=== PATIENT | male | born 1975 | race American Indian/Alaskan Native ===

== ENCOUNTER 2018-03-22 23:25 | Inpatient (IN) | payer MEDICARE ==
--- NOTE | 2018-03-23 00:42 | XRay Report ---
FINAL REPORT EXAM: XR CHEST 1V AP HISTORY: Shortness of breath COMPARISON: None available. FINDINGS: Frontal view(s) of the chest obtained. Cardiac silhouette grossly within normal limits. Marked hypoventilation of the lungs. Patchy airspace consolidations at the lung bases which may reflect combination of atelectasis and pneumonia. Large focal lucency to suggest pneumothorax. There is a lucency projecting over the lateral margin right lung field concerning for small right-sided pneumothorax. This is approximately 15 percent lung volume. No shifting of mediastinal structures. Marked elevation right hemidiaphragm. Possible small right-sided pleural effusion. IMPRESSION: Small right-sided pneumothorax. Nonspecific patchy airspace consolidations at the lung bases concerning for combination of atelectasis and pneumonia.
[2018-03-23 00:52] LABS: Hematocrit 35.9 % (35.5-45.6); Hemoglobin 10.6 gm/dl (11.8-15.2); Mean Corpuscular HGB Conc 30 % (32-34); Mean Corpuscular Hemoglobin 25 pg (28-32); Mean Corpuscular Volume 84 fl (84-94); Platelet Count 130 K/mm3 (140-440); Red Blood Count 4.29 M/mm3 (3.65-5.03); Red Cell Distribution Width 16.5 % (13.2-15.2)
[2018-03-23 01:11] LABS: BUN/Creatinine Ratio 85; Blood Urea Nitrogen 17 mg/dL (9-20); Calcium 6.9 mg/dL (8.4-10.2); Hemolysis Index 23
[2018-03-23] MEDS ORDERED: NACL 0.9% 1000 ML IV ONE (02:38)
--- NOTE | 2018-03-23 02:42 | Emergency Department Report ---
ED General Adult HPI - General Chief complaint: Dyspnea/Respdistress Stated complaint: LUCIUS Time Seen by Provider: 03/23/18 01:49 Source: family Mode of arrival: Wheelchair Limitations: Language Barrier, Physical Limitation, Other - History of Present Illness Initial comments: This is a 42-year-old male, cerebral palsy, developmental delay, DVT, currently off systemic anticoagulation, brought to the hospital by family for cough, weakness, shortness of breath. Patient nonverbal, cannot describe exacerbating or relieving factors. In the emergency room, was found to have hypoxemic respiratory failure, multilobar pneumonia, sepsis, the right-sided pneumothorax. The patient's symptoms initially improved with supportive care, oxygenation, and plan was to admit for IV fluids, antibiotics. In the emergency room, the care was discussed with critical care pulmonology on- call, Dr. Ambriz; she agreed with placement in the intensive care unit. Initial plan was to have patient on supplemental oxygen, with interventional radiology to perform a chest tube or Heimlich valve procedure during normal business hours. While in the emergency room. The patient decompensated, became hypoxic, hypotensive. Emergency right-sided Heimlich valve tube was placed using landmark technique, 400 mL of serous fluid were returned, saturation improved, blood pressure improved, and patient was subsequently intubated. -: Gradual Consistency: constant Improves with: none Worsens with: none Associated Symptoms: confusion, shortness of breath, weakness - Related Data Home Medications Medication Instructions Recorded Confirmed Last Taken carBAMazepine [TEGretol] 100 mg PO Q12H 04/06/16 04/06/16 Unknown Previous Rx's Medication Instructions Recorded Last Taken Type Clindamycin [Clindamycin CAP] 150 mg PO BID #8 capsule 04/17/16 Unknown Rx Enoxaparin [Lovenox] 30 mg SUB-Q Q12H #10 syringe 04/17/16 Unknown Rx Warfarin [Coumadin] 7.5 mg PO DAILY@1700 #30 tablet 04/17/16 Unknown Rx Pantoprazole [Protonix TAB] 20 mg PO DAILY #30 tablet. 04/23/16 Unknown Rx Allergies Allergy/AdvReac Type Severity Reaction Status Date / Time lactase [From Dairy Aid] AdvReac Nausea Verified 04/06/16 14:33 ED Review of Systems ROS: Stated complaint: LUCIUS Other details as noted in HPI Comment: Unobtainable due to pts medical conditions ED Past Medical Hx - Past Medical History Previous Medical History?: Yes Hx Congestive Heart Failure: No Hx Diabetes: No Hx Seizures: Yes Hx Asthma: No Hx COPD: No Hx HIV: No Additional medical history: Cerebral Palsy, Scoliosis. 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 - Surgical History Past Surgical History?: Yes Additional Surgical History: left hip - Social History Smoking Status: Never Smoker Substance Use Type: None - Medications Home Medications: Home Medications Medication Instructions Recorded Confirmed Last Taken Type carBAMazepine [TEGretol] 100 mg PO Q12H 04/06/16 04/06/16 Unknown History Clindamycin [Clindamycin CAP] 150 mg PO BID #8 capsule 04/17/16 Unknown Rx Enoxaparin [Lovenox] 30 mg SUB-Q Q12H #10 syringe 04/17/16 Unknown Rx Warfarin [Coumadin] 7.5 mg PO DAILY@1700 #30 tablet 04/17/16 Unknown Rx Pantoprazole [Protonix TAB] 20 mg PO DAILY #30 tablet. 04/23/16 Unknown Rx ED Physical Exam - General Limitations: Language Barrier, Physical Limitation, Other General appearance: lethargic - Eye Eye exam: Present: PERRL - ENT ENT exam: Present: normal orophraynx - Neck Neck exam: Present: normal inspection - Respiratory Respiratory exam: Present: decreased breath sounds - Cardiovascular Cardiovascular Exam: Present: regular rate, normal rhythm, irregular rhythm, normal heart sounds - GI/Abdominal GI/Abdominal exam: Present: soft, normal bowel sounds. Absent: distended, tenderness, guarding, rebound, rigid - Rectal Rectal exam: Present: other (sacral ulcer is noted) - Extremities Exam Extremities exam: Present: normal inspection. Absent: tenderness - Back Exam Back exam: Absent: tenderness - Neurological Exam Neurological exam: Present: altered - Psychiatric Psychiatric exam: Present: other (the patient is nonverbal) ED Course Vital Signs 03/22/18 03/22/18 03/23/18 23:27 23:47 02:55 Temperature 97.4 F L 97.4 F L Pulse Rate 130 H 82 Respiratory 12 20 Rate Blood Pressure 99/71 99/71 O2 Sat by Pulse 94 96 87 Oximetry 03/23/18 03/23/18 03/23/18 03:01 03:15 03:52 Temperature Pulse Rate 111 H Respiratory 29 H Rate Blood Pressure O2 Sat by Pulse 73 L 98 74 L Oximetry 03/23/18 03/23/18 03/23/18 04:00 04:15 04:30 Temperature Pulse Rate 109 H 102 H 99 H Respiratory 34 H 30 H 27 H Rate Blood Pressure 93/65 93/65 92/58 O2 Sat by Pulse 85 85 87 Oximetry 03/23/18 03/23/18 03/23/18 04:45 05:00 05:15 Temperature Pulse Rate 112 H 118 H 120 H Respiratory 30 H 26 H 30 H Rate Blood Pressure 92/58 90/61 95/60 O2 Sat by Pulse 83 L 79 L Oximetry 03/23/18 03/23/18 03/23/18 05:31 05:45 06:01 Temperature Pulse Rate 117 H 110 H 110 H Respiratory 35 H 25 H 14 Rate Blood Pressure 95/60 95/60 62/37 O2 Sat by Pulse 68 L 100 Oximetry 03/23/18 03/23/18 06:15 06:30 Temperature Pulse Rate 108 H 111 H Respiratory 22 24 Rate Blood Pressure 88/63 99/64 O2 Sat by Pulse 98 98 Oximetry - Chest Tube Chest Tube Location: seventh interspace Size of Vietnamese Tube (cm): 8 Chest Tube Procedure: betadine prep, sterile drapes applied, sterile dressing applied Anesthesia: 1% Lidocaine Mack of Air [place]: No Number of Attempts: 1 Tube Drainage: see nurses notes Tube Sutured to Skin: No Post Procedure CXR?: Yes - Intubation Time Out Performed: Yes Sedative: Ketamine Mg Given: 50 Paralytic: Rocuronium Mg Given: 50 Laryngoscope: Suresh Size: 3 Assist Device Used: Bougie ET Tube Size: 7.5 Tube Secured Depth (cm): 24 Tube Secured Location: teeth Tube Placement Confirmation: equal breath sounds bilat, no breath sounds over epi, confirmation by capnometr Patient Tolerated Procedure: well Intubation Complications: none Additional Comments: After placement of a right-sided Heimlich valve, visual laryngoscopy is performed, blue sheet catheter introduced into the trachea, and a 7-0 tracheal tube was placed without difficulty. ED Medical Decision Making - Lab Data Result diagrams: 03/23/18 00:22 03/23/18 00:22 Vital Signs 03/22/18 03/22/18 03/23/18 23:27 23:47 02:55 Temperature 97.4 F L 97.4 F L Pulse Rate 130 H 82 Respiratory 12 20 Rate Blood Pressure 99/71 99/71 O2 Sat by Pulse 94 96 87 Oximetry 03/23/18 03/23/18 03/23/18 03:01 03:15 03:52 Temperature Pulse Rate 111 H Respiratory 29 H Rate Blood Pressure O2 Sat by Pulse 73 L 98 74 L Oximetry 03/23/18 03/23/18 03/23/18 04:00 04:15 04:30 Temperature Pulse Rate 109 H 102 H 99 H Respiratory 34 H 30 H 27 H Rate Blood Pressure 93/65 93/65 92/58 O2 Sat by Pulse 85 85 87 Oximetry 03/23/18 03/23/18 03/23/18 04:45 05:00 05:15 Temperature Pulse Rate 112 H 118 H 120 H Respiratory 30 H 26 H 30 H Rate Blood Pressure 92/58 90/61 95/60 O2 Sat by Pulse 83 L 79 L Oximetry 03/23/18 03/23/18 03/23/18 05:31 05:45 06:01 Temperature Pulse Rate 117 H 110 H 110 H Respiratory 35 H 25 H 14 Rate Blood Pressure 95/60 95/60 62/37 O2 Sat by Pulse 68 L 100 Oximetry 03/23/18 03/23/18 06:15 06:30 Temperature Pulse Rate 108 H 111 H Respiratory 22 24 Rate Blood Pressure 88/63 99/64 O2 Sat by Pulse 98 98 Oximetry Lab Results 03/23/18 03/23/18 03/23/18 Range/Units 00:22 00:22 03:18 WBC 18.7 H (4.5-11.0) K/mm3 RBC 4.29 (3.65-5.03) M/mm3 Hgb 10.6 L (11.8-15.2) gm/dl Hct 35.9 (35.5-45.6) % MCV 84 (84-94) fl MCH 25 L (28-32) pg MCHC 30 L (32-34) % RDW 16.5 H (13.2-15.2) % Plt Count 130 L (140-440) K/mm3 Lymph % (Auto) Car Repair Supervisor [place] % (Auto) Car Repair Supervisor Eos % (Auto) Car Repair Supervisor Baso % (Auto) Car Repair Supervisor Lymph # Car Repair Supervisor [place] # Car Repair Supervisor Eos # Car Repair Supervisor Baso # Car Repair Supervisor Add Manual Diff Complete Total Counted 100 Seg Neutrophils % Car Repair Supervisor Seg Neuts % (Manual) 95.0 H (40.0-70.0) % Band Neutrophils % 2.0 % Lymphocytes % (Manual) 0 L (13.4-35.0) % Reactive Lymphs % (Man) 0 % Monocytes % (Manual) 3.0 (0.0-7.3) % Eosinophils % (Manual) 0 (0.0-4.3) % Basophils % (Manual) 0 (0.0-1.8) % Metamyelocytes % 0 % Myelocytes % 0 % Promyelocytes % 0 % Blast Cells % 0 % Nucleated RBC % Not Reportable Seg Neutrophils # Car Repair Supervisor Seg Neutrophils # Man 17.8 H (1.8-7.7) K/mm3 Band Neutrophils # 0.4 K/mm3 Lymphocytes # (Manual) 0.0 L (1.2-5.4) K/mm3 Abs React Lymphs (Man) 0.0 K/mm3 Monocytes # (Manual) 0.6 (0.0-0.8) K/mm3 Eosinophils # (Manual) 0.0 (0.0-0.4) K/mm3 Basophils # (Manual) 0.0 (0.0-0.1) K/mm3 Metamyelocytes # 0.0 K/mm3 Myelocytes # 0.0 K/mm3 Promyelocytes # 0.0 K/mm3 Blast Cells # 0.0 K/mm3 WBC Morphology Not Reportable Hypersegmented Neuts Not Reportable Hyposegmented Neuts Not Reportable Hypogranular Neuts Not Reportable Smudge Cells Not Reportable Toxic Granulation Not Reportable Toxic Vacuolation Not Reportable Dohle Bodies Not Reportable Pelger-Huet Anomaly Not Reportable Yemi Rods Not Reportable Platelet Estimate Appears decreased Clumped Platelets Not Reportable Plt Clumps, EDTA Not Reportable Large Platelets Not Reportable Giant Platelets Not Reportable Platelet Satelliting Not Reportable Plt Morphology Comment Not Reportable RBC Morphology Not Reportable Dimorphic RBCs Not Reportable Polychromasia Not Reportable Hypochromasia Not Reportable Poikilocytosis Not Reportable Anisocytosis 1+ Microcytosis Not Reportable Macrocytosis Few Spherocytes Not Reportable Pappenheimer Bodies Not Reportable Sickle Cells Not Reportable Target Cells Not Reportable Tear Drop Cells Not Reportable Ovalocytes Not Reportable Helmet Cells Not Reportable [place] Bodies Not Reportable [place] Rings Not Reportable Ahsan Cells Not Reportable Bite Cells Not Reportable Crenated Cell Not Reportable Elliptocytes Not Reportable Acanthocytes (Spur) Not Reportable Rouleaux Not Reportable Hemoglobin C Crystals Not Reportable Schistocytes Not Reportable Malaria parasites Not Reportable Brandt Bodies Not Reportable Hem Pathologist Commnt No APTT (24.2-36.6) Sec. POC ABG pH 7.401 (7.35-7.45) POC ABG pCO2 47.3 H (35-45) POC ABG pO2 52 L (80-105) POC ABG HCO3 29.4 POC ABG Total CO2 31 POC ABG O2 Sat 86 POC ABG Base Excess 5 FiO2 21 % Sodium 136 L (137-145) mmol/L Potassium 3.7 (3.6-5.0) mmol/L Chloride 101.9 (98-107) mmol/L Carbon Dioxide 24 (22-30) mmol/L Anion Gap 14 mmol/L BUN 17 (9-20) mg/dL Creatinine < 0.2 L (0.8-1.5) mg/dL Estimated GFR > 60 ml/min BUN/Creatinine Ratio 85 % Glucose 157 H (75-100) mg/dL Lactic Acid (0.7-2.0) mmol/L Calcium 6.9 L (8.4-10.2) mg/dL Total Bilirubin (0.1-1.2) mg/dL Direct Bilirubin (0-0.2) mg/dL Indirect Bilirubin mg/dL AST (5-40) units/L ALT (7-56) units/L Alkaline Phosphatase (35-129) units/L Total Creatine Kinase (55-170) units/L Total Protein (6.3-8.2) g/dL Albumin (3.9-5) g/dL Albumin/Globulin Ratio % Blood Type Antibody Screen 03/23/18 03/23/18 03/23/18 Range/Units 03:19 03:19 03:19 WBC (4.5-11.0) K/mm3 RBC (3.65-5.03) M/mm3 Hgb (11.8-15.2) gm/dl Hct (35.5-45.6) % MCV (84-94) fl MCH (28-32) pg MCHC (32-34) % RDW (13.2-15.2) % Plt Count (140-440) K/mm3 Lymph % (Auto) [place] % (Auto) Eos % (Auto) Baso % (Auto) Lymph # [place] # Eos # Baso # Add Manual Diff Total Counted Seg Neutrophils % Seg Neuts % (Manual) (40.0-70.0) % Band Neutrophils % % Lymphocytes % (Manual) (13.4-35.0) % Reactive Lymphs % (Man) % Monocytes % (Manual) (0.0-7.3) % Eosinophils % (Manual) (0.0-4.3) % Basophils % (Manual) (0.0-1.8) % Metamyelocytes % % Myelocytes % % Promyelocytes % % Blast Cells % % Nucleated RBC % Seg Neutrophils # Seg Neutrophils # Man (1.8-7.7) K/mm3 Band Neutrophils # K/mm3 Lymphocytes # (Manual) (1.2-5.4) K/mm3 Abs React Lymphs (Man) K/mm3 Monocytes # (Manual) (0.0-0.8) K/mm3 Eosinophils # (Manual) (0.0-0.4) K/mm3 Basophils # (Manual) (0.0-0.1) K/mm3 Metamyelocytes # K/mm3 Myelocytes # K/mm3 Promyelocytes # K/mm3 Blast Cells # K/mm3 WBC Morphology Hypersegmented Neuts Hyposegmented Neuts Hypogranular Neuts Smudge Cells Toxic Granulation Toxic Vacuolation Dohle Bodies Pelger-Huet Anomaly Yemi Rods Platelet Estimate Clumped Platelets Plt Clumps, EDTA Large Platelets Giant Platelets Platelet Satelliting Plt Morphology Comment RBC Morphology Dimorphic RBCs Polychromasia Hypochromasia Poikilocytosis Anisocytosis Microcytosis Macrocytosis Spherocytes Pappenheimer Bodies Sickle Cells Target Cells Tear Drop Cells Ovalocytes Helmet Cells [place] Bodies [place] Rings Ahsan Cells Bite Cells Crenated Cell Elliptocytes Acanthocytes (Spur) Rouleaux Hemoglobin C Crystals Schistocytes Malaria parasites Brandt Bodies Hem Pathologist Commnt APTT 38.4 H (24.2-36.6) Sec. POC ABG pH (7.35-7.45) POC ABG pCO2 (35-45) POC ABG pO2 (80-105) POC ABG HCO3 POC ABG Total CO2 POC ABG O2 Sat POC ABG Base Excess FiO2 % Sodium (137-145) mmol/L Potassium (3.6-5.0) mmol/L Chloride (98-107) mmol/L Carbon Dioxide (22-30) mmol/L Anion Gap mmol/L BUN (9-20) mg/dL Creatinine (0.8-1.5) mg/dL Estimated GFR ml/min BUN/Creatinine Ratio % Glucose (75-100) mg/dL Lactic Acid (0.7-2.0) mmol/L Calcium (8.4-10.2) mg/dL Total Bilirubin (0.1-1.2) mg/dL Direct Bilirubin (0-0.2) mg/dL Indirect Bilirubin mg/dL AST (5-40) units/L ALT (7-56) units/L Alkaline Phosphatase (35-129) units/L Total Creatine Kinase 55 (55-170) units/L Total Protein (6.3-8.2) g/dL Albumin (3.9-5) g/dL Albumin/Globulin Ratio % Blood Type A POSITIVE Antibody Screen Negative 03/23/18 03/23/18 Range/Units 03:19 03:19 WBC (4.5-11.0) K/mm3 RBC (3.65-5.03) M/mm3 Hgb (11.8-15.2) gm/dl Hct (35.5-45.6) % MCV (84-94) fl MCH (28-32) pg MCHC (32-34) % RDW (13.2-15.2) % Plt Count (140-440) K/mm3 Lymph % (Auto) [place] % (Auto) Eos % (Auto) Baso % (Auto) Lymph # [place] # Eos # Baso # Add Manual Diff Total Counted Seg Neutrophils % Seg Neuts % (Manual) (40.0-70.0) % Band Neutrophils % % Lymphocytes % (Manual) (13.4-35.0) % Reactive Lymphs % (Man) % Monocytes % (Manual) (0.0-7.3) % Eosinophils % (Manual) (0.0-4.3) % Basophils % (Manual) (0.0-1.8) % Metamyelocytes % % Myelocytes % % Promyelocytes % % Blast Cells % % Nucleated RBC % Seg Neutrophils # Seg Neutrophils # Man (1.8-7.7) K/mm3 Band Neutrophils # K/mm3 Lymphocytes # (Manual) (1.2-5.4) K/mm3 Abs React Lymphs (Man) K/mm3 Monocytes # (Manual) (0.0-0.8) K/mm3 Eosinophils # (Manual) (0.0-0.4) K/mm3 Basophils # (Manual) (0.0-0.1) K/mm3 Metamyelocytes # K/mm3 Myelocytes # K/mm3 Promyelocytes # K/mm3 Blast Cells # K/mm3 WBC Morphology Hypersegmented Neuts Hyposegmented Neuts Hypogranular Neuts Smudge Cells Toxic Granulation Toxic Vacuolation Dohle Bodies Pelger-Huet Anomaly Yemi Rods Platelet Estimate Clumped Platelets Plt Clumps, EDTA Large Platelets Giant Platelets Platelet Satelliting Plt Morphology Comment RBC Morphology Dimorphic RBCs Polychromasia Hypochromasia Poikilocytosis Anisocytosis Microcytosis Macrocytosis Spherocytes Pappenheimer Bodies Sickle Cells Target Cells Tear Drop Cells Ovalocytes Helmet Cells [place] Bodies [place] Rings Ahsan Cells Bite Cells Crenated Cell Elliptocytes Acanthocytes (Spur) Rouleaux Hemoglobin C Crystals Schistocytes Malaria parasites Brandt Bodies Hem Pathologist Commnt APTT (24.2-36.6) Sec. POC ABG pH (7.35-7.45) POC ABG pCO2 (35-45) POC ABG pO2 (80-105) POC ABG HCO3 POC ABG Total CO2 POC ABG O2 Sat POC ABG Base Excess FiO2 % Sodium (137-145) mmol/L Potassium (3.6-5.0) mmol/L Chloride (98-107) mmol/L Carbon Dioxide (22-30) mmol/L Anion Gap mmol/L BUN (9-20) mg/dL Creatinine (0.8-1.5) mg/dL Estimated GFR ml/min BUN/Creatinine Ratio % Glucose (75-100) mg/dL Lactic Acid 3.00 H* (0.7-2.0) mmol/L Calcium (8.4-10.2) mg/dL Total Bilirubin < 0.20 (0.1-1.2) mg/dL Direct Bilirubin < 0.2 (0-0.2) mg/dL Indirect Bilirubin 0.0 mg/dL AST 20 (5-40) units/L ALT 16 (7-56) units/L Alkaline Phosphatase 160 H (35-129) units/L Total Creatine Kinase (55-170) units/L Total Protein 4.8 L (6.3-8.2) g/dL Albumin 1.5 L (3.9-5) g/dL Albumin/Globulin Ratio 0.5 % Blood Type Antibody Screen - Radiology Data Radiology results: report reviewed, image reviewed int Report Referring Physician: SANJAY STRANGE Patient Name: BARB CHICAS Date of : 1975 Sex: Male Report Date: 2018-03-23 Report Status: Finalized Findings [facility] [address] [place] [address] XRay Report Signed Patient: BARB CHICAS MR#: [id number] : 1975 Acct:[id number] Age/Sex: 42 / M ADM Date: 03/23/18 Loc: CC1 [id number]: MAUDE MEZA MD Ordering Physician: SANJAY STRANGE MD Date of Service: 03/23/18 Procedure(s): XR chest 1V ap Accession Number(s): [id number] cc: SANJAY STRANGE MD Fluoro Time In Minutes: FINAL REPORT EXAM: XR CHEST 1V AP HISTORY: post intubation and OG placement TECHNIQUE: A portable supine view the chest was obtained and compared to the previous study of 03/22/2018. FINDINGS: The tip of the ET tube is 5 millimeters above the jeanine. The NG tube is not seen on the image. There is a right-sided chest tube in place with the tip toward the right apex. There is approximately 10 percent right-sided pneumothorax. The lungs reveal extensive airspace disease bilaterally unchanged from the previous study. The heart size is normal. Underlying congestion cannot be excluded. The bones and soft tissues otherwise reveal a severe rotatory levoscoliosis of the thoracolumbar spine. IMPRESSION: Tip of the ET tube 5 mm above the jeanine. The NG tube is not identified. Stable 10 percent right-sided pneumothorax with chest tube in place. Extensive airspace disease in both lungs unchanged from the previous study. Transcribed By: RB Dictated By: JACK SOUZA MD Electronically Authenticated By: JACK SOUZA MD Signed Date/Time: 03/23/18624 Print Report Referring Physician: SANJAY STRANGE Patient Name: BARB CHICAS Date of : 1975 Sex: Male Report Date: 2018-03-23 Report Status: Finalized Findings [facility] [address] [place] [address] Cat Scan Report Signed Patient: BARB CHICAS MR#: [id number] : 1975 Acct:[id number] Age/Sex: 42 / M ADM Date: 03/22/18 Loc: ED Attending Dr: Ordering Physician: SANJAY STRANGE MD Date of Service: 03/23/18 Procedure(s): CT chest wo con Accession Number(s): [id number] cc: SANJAY STRANGE MD FINAL REPORT EXAM: CT CHEST WO CON HISTORY: dyspnea TECHNIQUE: Routine axial imaging was obtained of the thorax without IV contrast with sagittal and coronal reconstructions. FINDINGS: The chest is distorted by a prominent rotatory thoracolumbar levoscoliosis. The right lung reveals a 10 percent pneumothorax. There is consolidation in the right lower lobe with air bronchograms along with a small to moderate size right-sided effusion. The left lung reveals extensive areas of airspace disease in the left upper lobe lingula and left lower lobe also. The lungs are not overtly congested. The heart size is normal. Pericardial fluid is not seen. IMPRESSION: Approximately 10 percent right-sided pneumothorax. Extensive airspace disease in both lungs as described compatible with bilateral pneumonia. Small to moderate size right-sided pleural effusion noted also. No evidence of pericardial effusion or congestion. Prominent rotatory levoscoliosis of the thoracolumbar spine Transcribed By: RB Dictated By: JACK SOUZA MD Electronically Authenticated By: JACK SOUZA MD Signed Date/Time: 03/23/18409 - Medical Decision Making Differential diagnosis, including limited to: Pneumothorax, sepsis, pneumonia, multifactorial was refill U Assessment and plan: 42-year-old male, developmentally delayed, cerebral palsy, he meets sepsis criteria, with respiratory failure secondary to multiple pneumonia, as well as right-sided pneumothorax. He is saturating well with a right-sided chest tube in, he has been treated appropriately for pneumonia, he will be admitted to the hospital, guarded prognosis. Extensive discussion with family, they do not have advanced directives at this time. Dr. Meza to admit the patient. Critical Care Time: Yes Critical care time in (mins) excluding proc time.: 60 Critical care attestation.: If time is entered above; I have spent that time in minutes in the direct care of this critically ill patient, excluding procedure time. ED Disposition Clinical Impression: SIRS (systemic inflammatory response syndrome), Respiratory failure Disposition: [id number] OP ADMIT IP TO THIS HOSP Is pt being admited?: Yes Condition: Fair
[2018-03-23] MEDS ORDERED: cefTRIAXone 2 GM in NACL 0.9% 20 ML IV SCH (03:00)
[2018-03-23] MEDS ORDERED: ZITHROMAX 500 MG in NACL 0.9% 250ML 250 ML IV SCH (03:00)
[2018-03-23 03:59] LABS: Band Neutrophils # (Manual) 0.4 K/mm3; Basophils % (Manual) 0 % (0.0-1.8); Eosinophils % (Manual) 0 % (0.0-4.3); Total Cells Counted 100
[2018-03-23 04:01] LABS: Alanine Aminotransferase 16 units/L (7-56); Albumin 1.5 g/dL (3.9-5)
[2018-03-23 04:02] LABS: Anisocytosis 1+; Macrocytosis Few; Platelet Estimate Appears Decreased
--- NOTE | 2018-03-23 04:13 | Cat Scan Report ---
FINAL REPORT EXAM: CT CHEST WO CON HISTORY: dyspnea TECHNIQUE: Routine axial imaging was obtained of the thorax without IV contrast with sagittal and coronal reconstructions. FINDINGS: The chest is distorted by a prominent rotatory thoracolumbar levoscoliosis. The right lung reveals a 10 percent pneumothorax. There is consolidation in the right lower lobe with air bronchograms along with a small to moderate size right-sided effusion. The left lung reveals extensive areas of airspace disease in the left upper lobe lingula and left lower lobe also. The lungs are not overtly congested. The heart size is normal. Pericardial fluid is not seen. IMPRESSION: Approximately 10 percent right-sided pneumothorax. Extensive airspace disease in both lungs as described compatible with bilateral pneumonia. Small to moderate size right-sided pleural effusion noted also. No evidence of pericardial effusion or congestion. Prominent rotatory levoscoliosis of the thoracolumbar spine
[2018-03-23 04:17] LABS: Bilirubin,Direct < 0.2 mg/dL (0-0.2)
[2018-03-23] MEDS ORDERED: TYLENOL PO PRN (04:32)
[2018-03-23] MEDS ORDERED: SODIUM CHLORIDE FLUSH SYRINGE 10 ML IV PRN (04:32)
[2018-03-23] MEDS ORDERED: ZOFRAN IV PRN (04:32)
[2018-03-23] MEDS ORDERED: TYLENOL PR PRN (04:32)
[2018-03-23 04:36] LABS: Bilirubin,Urine NEG (Negative); Blood,Urine NEG (Negative); Color,Urine Amber (Yellow); Mucus,Urine 3+ /HPF; Urobilinogen,Urine < 2.0 mg/dL (<2.0)
--- NOTE | 2018-03-23 04:37 | History and Physical Report ---
History of Present Illness Date of examination: 03/23/18 History of present illness: 42 year old man with history of cerebral palsy, scolosis was brought to the emergency room by his parents for evaluation of shortness of breath. He had difficulty bringing up phlegm. He saw PMD who gave him muccinex, nebulizer treatments. His symptoms did not improve with these medicine. A review of system is unavailable PAST MEDICAL HISTORY: cerebral palsy, scolosis PAST SURGICAL HISTORY: None SOCIAL HISTORY: Denies tobacco, drugs, alcohol FAMILY HISTORY: Hypertension Medications and Allergies Allergies Allergy/AdvReac Type Severity Reaction Status Date / Time lactase [From Dairy Aid] AdvReac Nausea Verified 04/06/16 14:33 Home Medications Medication Instructions Recorded Confirmed Last Taken Type carBAMazepine [TEGretol] 100 mg PO Q12H 04/06/16 03/23/18 Unknown History Warfarin [Coumadin] 7.5 mg PO DAILY@1700 #30 tablet 04/17/16 03/23/18 Unknown Rx Apixaban [Eliquis] 2.5 mg PO BID 03/23/18 03/23/18 Unknown History Baclofen [Lioresal] 5 mg PO BID 03/23/18 03/23/18 Unknown History Fluticasone [Flonase] 1 spray NS QDAY 03/23/18 03/23/18 Unknown History Active Meds: Active Medications Azithromycin 500 mg/ Sodium (Chloride) 250 mls @ 250 mls/hr IV Q24HR JASON Ceftriaxone Sodium 2 gm/ (Sodium Chloride) 20 mls @ 2 mls/min IV Q24HR JASON Exam - Physical Exam Narrative exam: Gen. appearance: Patient lying in bed, no apparent distress, frail looking HEENT: Normocephalic, atraumatic, pupils equally round and reactive to light, extraocular movement intact, and no sclericterus,. No JVD or thyromegaly or nodule,neck supple, no carotid bruit ,mucous membranes moist, no exudate or erythema Heart: S1, S2, regular rate and rhythm Lungs: Clear to auscultation anteriorly bilaterally, breathing comfortable Abdomen: Positive bowel sounds, soft, nondistended, no organomegaly Extremity: No edema, cyanosis, clubbing Skin: stage 1 ulcer on left hip, No rash, nodules, warm, dry Neuro: contracted - Constitutional Vitals: Temp Pulse Resp BP Pulse Ox 97.4 F L 82 20 99/71 96 03/22/18 23:47 03/22/18 23:47 03/22/18 23:47 03/22/18 23:47 03/22/18 23:47 Results - Labs CBC & Chem 7: 03/23/18 00:22 03/23/18 00:22 Labs: Abnormal lab results 03/23/18 03/23/18 03/23/18 Range/Units 00:22 00:22 03:18 WBC 18.7 H (4.5-11.0) K/mm3 Hgb 10.6 L (11.8-15.2) gm/dl MCH 25 L (28-32) pg MCHC 30 L (32-34) % RDW 16.5 H (13.2-15.2) % Plt Count 130 L (140-440) K/mm3 Seg Neuts % (Manual) 95.0 H (40.0-70.0) % Lymphocytes % (Manual) 0 L (13.4-35.0) % Seg Neutrophils # Man 17.8 H (1.8-7.7) K/mm3 Lymphocytes # (Manual) 0.0 L (1.2-5.4) K/mm3 APTT (24.2-36.6) Sec. POC ABG pCO2 47.3 H (35-45) POC ABG pO2 52 L (80-105) Sodium 136 L (137-145) mmol/L Creatinine < 0.2 L (0.8-1.5) mg/dL Glucose 157 H (75-100) mg/dL Lactic Acid (0.7-2.0) mmol/L Calcium 6.9 L (8.4-10.2) mg/dL Alkaline Phosphatase (35-129) units/L Total Protein (6.3-8.2) g/dL Albumin (3.9-5) g/dL 03/23/18 03/23/18 03/23/18 Range/Units 03:19 03:19 03:19 WBC (4.5-11.0) K/mm3 Hgb (11.8-15.2) gm/dl MCH (28-32) pg MCHC (32-34) % RDW (13.2-15.2) % Plt Count (140-440) K/mm3 Seg Neuts % (Manual) (40.0-70.0) % Lymphocytes % (Manual) (13.4-35.0) % Seg Neutrophils # Man (1.8-7.7) K/mm3 Lymphocytes # (Manual) (1.2-5.4) K/mm3 APTT 38.4 H (24.2-36.6) Sec. POC ABG pCO2 (35-45) POC ABG pO2 (80-105) Sodium (137-145) mmol/L Creatinine (0.8-1.5) mg/dL Glucose (75-100) mg/dL Lactic Acid 3.00 H* (0.7-2.0) mmol/L Calcium (8.4-10.2) mg/dL Alkaline Phosphatase 160 H (35-129) units/L Total Protein 4.8 L (6.3-8.2) g/dL Albumin 1.5 L (3.9-5) g/dL - Imaging and Cardiology Chest x-ray: report reviewed CT scan - chest: report reviewed Assessment and Plan Assessment Sepsis Community Acquired Pneumonia Pneumothorax Cerebral palsy thrombocytopenia Plan Admit to medicine STart IV antibiotic, iv fluid, follow cultures Consult critical care Consult interventional radiology for tube for heimlich tube DVT prophalaxis Addendum Chest tube was place by the ER doctor and the patient was intbated
[2018-03-23] MEDS ORDERED: XYLOCAINE 2% INFILTRATI ONE (05:23)
[2018-03-23] MEDS ORDERED: NACL 0.9% 1000 ML 1,000 ML ONE (06:04)
[2018-03-23] MEDS ORDERED: NACL 0.9% 1000 ML 1,000 ML IV ONE (06:05)
--- NOTE | 2018-03-23 06:29 | XRay Report ---
FINAL REPORT EXAM: XR CHEST 1V AP HISTORY: post intubation and OG placement TECHNIQUE: A portable supine view the chest was obtained and compared to the previous study of 03/22/2018. FINDINGS: The tip of the ET tube is 5 millimeters above the jeanine. The NG tube is not seen on the image. There is a right-sided chest tube in place with the tip toward the right apex. There is approximately 10 percent right-sided pneumothorax. The lungs reveal extensive airspace disease bilaterally unchanged from the previous study. The heart size is normal. Underlying congestion cannot be excluded. The bones and soft tissues otherwise reveal a severe rotatory levoscoliosis of the thoracolumbar spine. IMPRESSION: Tip of the ET tube 5 mm above the jeanine. The NG tube is not identified. Stable 10 percent right-sided pneumothorax with chest tube in place. Extensive airspace disease in both lungs unchanged from the previous study.
[2018-03-23] MEDS: DUONEB *Not for PRN Use IH SCH ×2 (09:58→16:24)
[2018-03-23] MEDS ORDERED: LOVENOX SUB-Q SCH (10:00)
[2018-03-23] MEDS ORDERED: SODIUM CHLORIDE FLUSH SYRINGE 10 ML IV SCH (10:00)
[2018-03-23] MEDS ORDERED: ROCEPHIN/NS 2 GM/100 ML 2 GM/100 ML BAG IV SCH (10:00)
[2018-03-23 10:54] VITALS: BP 85/62
[2018-03-23] MEDS ORDERED: KETALAR ONE (10:56)
[2018-03-23] MEDS ORDERED: ZEMURON IV ONE (10:56)
[2018-03-23] MEDS ORDERED: PEPCID IV SCH (11:00)
--- NOTE | 2018-03-23 11:26 | Consultation ---
History of Present Illness Consult date: 03/23/18 History of present illness: This is a 42-year-old male, cerebral palsy, developmental delay, DVT, currently off systemic anticoagulation, brought to the hospital by family for cough, weakness, shortness of breath. Patient nonverbal, cannot describe exacerbating or relieving factors. In the emergency room, was found to have hypoxemic respiratory failure, multilobar pneumonia, sepsis, the right-sided pneumothorax. The patient's symptoms initially improved with supportive care, oxygenation, and plan was to admit for IV fluids, antibiotics. In the emergency room, the care was discussed with critical care pulmonology on- call, Dr. Ambriz; she agreed with placement in the intensive care unit. Initial plan was to have patient on supplemental oxygen, with interventional radiology to perform a chest tube or Heimlich valve procedure during normal business hours. While in the emergency room. The patient decompensated, became hypoxic, hypotensive. Emergency right-sided Heimlich valve tube was placed using landmark technique, 400 mL of serous fluid were returned, saturation improved, blood pressure improved, and patient was subsequently intubated. On arrival to ICU patient was desaturating, hypotensive. Left Hiemlich valve was placed to suction, normal saline bolus was given Peep was increased to 10, currently on FIO2 100% Obtained consent from the mother for placement of LIJ CVC catheter, unable to get PICC line team to place PICC line. While in the room assessing the patient, he became bradycardic. Atropine was administered, he subsequently became pulseless with asytole. Code nella called. Patietn was resuscitated based on ACLS protocol. Mother was in [facility] ICU room during the process. There was no return of ROSC. See code blue documentation for details. Resuscitative measures ended at 1150am . Patient's eyes were fixed and dilated, no cardiac pulsation, no spontaneous breaths. Mother at the bedside. Medications and Allergies Allergies Allergy/AdvReac Type Severity Reaction Status Date / Time lactase [From Dairy Aid] AdvReac Nausea Verified 04/06/16 14:33 Home Medications Medication Instructions Recorded Confirmed Last Taken Type carBAMazepine [TEGretol] 100 mg PO Q12H 04/06/16 03/23/18 Unknown History Warfarin [Coumadin] 7.5 mg PO DAILY@1700 #30 tablet 04/17/16 03/23/18 Unknown Rx Apixaban [Eliquis] 2.5 mg PO BID 03/23/18 03/23/18 Unknown History Baclofen [Lioresal] 5 mg PO BID 03/23/18 03/23/18 Unknown History Fluticasone [Flonase] 1 spray NS QDAY 03/23/18 03/23/18 Unknown History Active Meds: Active Medications Acetaminophen (Tylenol) 650 mg PO Q4H PRN PRN Reason: Pain MILD(1-3)/Fever >100.5/REEVES Acetaminophen (Tylenol) 650 mg IA Q4H PRN PRN Reason: Pain MILD(1-3)/Fever >100.5/REEVES Albuterol/Ipratropium (Duoneb *Not For Prn Use*) 1 ampul IH Q6HRT [facility] Last Admin: 03/23/18 09:58 Dose: 1 ampul Famotidine (Pepcid) 20 mg IV BID [facility] Azithromycin 500 mg/ Sodium (Chloride) 250 mls @ 250 mls/hr IV Q24HR [facility] Last Admin: 03/23/18 04:39 Dose: 250 mls/hr Ceftriaxone Sodium 2 gm/ (Sodium Chloride) 20 mls @ 2 mls/min IV Q24HR [facility] Last Admin: 03/23/18 03:25 Dose: 2 mls/min Ondansetron HCl (Zofran) 4 mg IV Q4H PRN PRN Reason: Nausea And Vomiting Sodium Chloride (Sodium Chloride Flush Syringe 10 Ml) 10 ml IV BID [facility] Sodium Chloride (Sodium Chloride Flush Syringe 10 Ml) 10 ml IV PRN PRN PRN Reason: LINE FLUSH Physical Examination Vital signs: Vital Signs Temp Pulse Resp BP Pulse Ox 97.4 F L 130 H 12 99/71 94 03/22/18 23:27 03/22/18 23:27 03/22/18 23:27 03/22/18 23:27 03/22/18 23:27 Results - Laboratory Findings CBC and BMP: 03/23/18 00:22 03/23/18 00:22 ABG POC ABG pH 7.003 (7.35-7.45) L 03/23/18 08:56 POC ABG pCO2 102.3 (35-45) H 03/23/18 08:56 POC ABG pO2 79 (80-105) L 03/23/18 08:56 POC ABG HCO3 25.4 03/23/18 08:56 POC ABG Total CO2 28 03/23/18 08:56 POC ABG O2 Sat 86 03/23/18 08:56 Abnormal lab findings: Abnormal Labs 03/23/18 03/23/18 03/23/18 00:22 00:22 03:18 WBC 18.7 H Hgb 10.6 L MCH 25 L MCHC 30 L RDW 16.5 H Plt Count 130 L Seg Neuts % (Manual) 95.0 H Lymphocytes % (Manual) 0 L Seg Neutrophils # Man 17.8 H Lymphocytes # (Manual) 0.0 L APTT POC ABG pH POC ABG pCO2 47.3 H POC ABG pO2 52 L Sodium 136 L Creatinine < 0.2 L Glucose 157 H Lactic Acid Calcium 6.9 L Alkaline Phosphatase Total Protein Albumin Ur Specific [place] 03/23/18 03/23/18 03/23/18 03:19 03:19 03:19 WBC Hgb MCH MCHC RDW Plt Count Seg Neuts % (Manual) Lymphocytes % (Manual) Seg Neutrophils # Man Lymphocytes # (Manual) APTT 38.4 H POC ABG pH POC ABG pCO2 POC ABG pO2 Sodium Creatinine Glucose Lactic Acid 3.00 H* Calcium Alkaline Phosphatase 160 H Total Protein 4.8 L Albumin 1.5 L Ur Specific [place] 03/23/18 03/23/18 03/23/18 08:56 10:06 Unknown WBC Hgb MCH MCHC RDW Plt Count Seg Neuts % (Manual) Lymphocytes % (Manual) Seg Neutrophils # Man Lymphocytes # (Manual) APTT POC ABG pH 7.003 L POC ABG pCO2 102.3 H POC ABG pO2 79 L Sodium Creatinine Glucose Lactic Acid 5.20 H* Calcium Alkaline Phosphatase Total Protein Albumin Ur Specific [place] 1.035 H
--- NOTE | 2018-03-23 12:09 | Event Note ---
Date: 03/23/18 History of present illness: This is a 42-year-old male, cerebral palsy, developmental delay, DVT, currently off systemic anticoagulation, brought to the hospital by family for cough, weakness, shortness of breath. Patient nonverbal, cannot describe exacerbating or relieving factors. In the emergency room, was found to have hypoxemic respiratory failure, multilobar pneumonia, sepsis, the right-sided pneumothorax. The patient's symptoms initially improved with supportive care, oxygenation, and plan was to admit for IV fluids, antibiotics. In the emergency room, the care was discussed with critical care pulmonology on- call, Dr. Ambriz; she agreed with placement in the intensive care unit. Initial plan was to have patient on supplemental oxygen, with interventional radiology to perform a chest tube or Heimlich valve procedure during normal business hours. While in the emergency room. The patient decompensated, became hypoxic, hypotensive. Emergency right-sided Heimlich valve tube was placed using landmark technique, 400 mL of serous fluid were returned, saturation improved, blood pressure improved, and patient was subsequently intubated. On arrival to ICU patient was desaturating, hypotensive. Left Hiemlich valve was placed to suction, normal saline bolus was given Peep was increased to 10, currently on FIO2 100% Obtained consent from the mother for placement of LIJ CVC catheter, unable to get PICC line team to place PICC line. While in the room assessing the patient, he became bradycardic. Atropine was administered, he subsequently became pulseless with asytole. Code nella called. Kymn was resuscitated based on ACLS protocol. Mother was in [facility] ICU room during the process. There was no return of ROSC. See code blue documentation for details. Resuscitative measures ended at 1150am Patient's eyes were fixed and dilated, no cardiac pulsation, no spontaneous breaths. Mother at the bedside.
[2018-03-23] MEDS ORDERED: NACL 0.9% 500 ML ONE (15:40)
--- NOTE | 2018-03-23 16:36 | Death Summary ---
Summary - Providers Consults: 03/23/18 02:38 Consult to Physician [CONS] Stat Comment: DR COBB NOTIFIED Consulting Provider: CYDNEY COBB Physician Instructions: Reason For Exam: sepsis Attending: NIGHAT STEPHENS MD - summary Date of admission: 03/23/18 04:32 Date of : 03/23/18
[2018-03-23] MEDS ORDERED: CALCIUM CHLORIDE IV ONE (19:33)
[2018-03-23] MEDS ORDERED: ADRENALIN ONE (19:33)
[2018-03-23] MEDS ORDERED: SODIUM BICARBONATE IV ONE (19:33)
== END 2018-03-23 16:00 | DRG 871 ==
LOC: ED 23:25 → CC1 03-23 04:32
PROVIDERS: ADMIT Internal Medicine; ATTEND Internal Medicine
PROC: 5A1935Z Respiratory Ventilation, Less than 24 Consecutive Hours (ICD-10-PCS; principal; 2018-03-23)
PROC: 0BH17EZ Insertion of Endotracheal Airway into Trachea, Via Natural or Artificial Opening (ICD-10-PCS; 2018-03-23)
PROC: 4A033R1 Measurement of Arterial Saturation, Peripheral, Percutaneous Approach (ICD-10-PCS; 2018-03-23)
DX: A41.9 Sepsis, unspecified organism (principal); J18.9 Pneumonia, unspecified organism; J96.01 Acute respiratory failure with hypoxia; J93.9 Pneumothorax, unspecified; G80.9 Cerebral palsy, unspecified; R56.9 Unspecified convulsions; Z82.49 Family history of ischemic heart disease and other diseases of the circulatory system; D69.6 Thrombocytopenia, unspecified
CPT/HCPCS: 36415; 36600; 71045; 71250; 80048; 80074; 81001; 82140; 82550; 82803; 85007; 85025; 85730; 86403; 86850; 86900; 86901; 87040; 87070; 87076; 87086; 87186; 87205; 94002; 94003; 94640; J0171; J0456; J0696; J7030; J7040; J7050